=== PATIENT | female | born 1995 | race Asian ===

== ENCOUNTER 2019-02-18 19:05 | Emergency (ER) | payer OTHER ==
[~2019-02-18] VITALS: Ht 154.9 cm; Wt 83.9 kg
[2019-02-18 19:26] VITALS: BP_SYST 136
[2019-02-19] MEDS ORDERED: IBUPROFEN 800 MG TABLET PO ONE (02:30)
[2019-02-19 02:45] VITALS: BP_SYST 136
== END 2019-02-19 02:45 | disposition home or self-care (01) ==
LOC: SED 19:05
DX: S06.0X0A Concussion without loss of consciousness, initial encounter (principal); V49.40XA Driver injured in collision with unspecified motor vehicles in traffic accident, initial encounter; Y93.89 Activity, other specified; Y92.89 Other specified places as the place of occurrence of the external cause; Y99.8 Other external cause status
CPT/HCPCS: 70450-TC; 71045; 99284

== ENCOUNTER 2019-06-15 18:24 | Emergency (ER) | payer OTHER ==
[~2019-06-15] VITALS: Ht 157.5 cm; Wt 88.5 kg
[2019-06-15 18:42] VITALS: BP_SYST 133
--- NOTE | 2019-06-15 18:42 | NUR ---
PAtient complaining laceration to left 3rd finger after metal gate slammed into it. Laceration is 1 cm straight. Pain /. unknown Tetanus status. [employer] intact. Good range of motion. No other complaints/injuries per patient or as noted
--- NOTE | 2019-06-15 18:42 | NUR ---
Patient to ER bed 03 to gown for evaluation. Side rails up.
--- NOTE | 2019-06-15 18:46 | NUR ---
ER Dr. Pablo at bedside examining patient.
[2019-06-15] MEDS ORDERED: LIDOCAINE 1% 10 MG/ML, 20 ML MDV INJ ONE (19:00)
[2019-06-15] MEDS ORDERED: DIPH-TET-PERTUS Vaccine 0.5 ML VIAL (ADACEL) I.M. ONE (19:15)
[2019-06-15 19:45] VITALS: BP_SYST 123
--- NOTE | 2019-06-15 19:45 | NUR ---
Patient given written and verbal discharge instructions and verbalizes understanding. ER MD discussed with patient the results and treatment provided. Patient in stable condition. ID arm band removed. Patient educated on pain management and to follow up with PMD. Pain Scale 0/10 Opportunity for questions provided and answered.
[2019-06-15] MEDS ORDERED: BACITRACIN 1 GM OINT TP ONE (19:47)
== END 2019-06-15 19:45 | disposition home or self-care (01) ==
LOC: SED 18:24
DX: S01.81XA Laceration without foreign body of other part of head, initial encounter (principal); W23.0XXA Caught, crushed, jammed, or pinched between moving objects, initial encounter; Y93.89 Activity, other specified; Y92.89 Other specified places as the place of occurrence of the external cause; Y99.8 Other external cause status
CPT/HCPCS: 73140-TC; 90715; 99283

== ENCOUNTER 2019-12-07 09:27 | Emergency (ER) | payer OTHER ==
[~2019-12-07] VITALS: Ht 157.5 cm; Wt 105.7 kg
[2019-12-07 09:30] VITALS: BP_SYST 138
--- NOTE | 2019-12-07 09:40 | NUR ---
Patient to ER bed 3 to gown for evaluation. Side rails up. Report given to ATILIO Morel.
--- NOTE | 2019-12-07 09:52 | NUR ---
Pt alert and oriented. Able to communicate needs well. C/O headache.
--- NOTE | 2019-12-07 10:00 | NUR ---
ER Dr. Rust at bedside examining patient.
[2019-12-07] MEDS ORDERED: KETOROLAC TROMETHAMINE 60 MG/2 ML VIAL IM ONE (10:30)
[2019-12-07] MEDS ORDERED: ONDANSETRON 4 MG ODT TAB PO ONE (10:30)
[2019-12-07 10:37] VITALS: BP_SYST 138
--- NOTE | 2019-12-07 10:42 | NUR ---
Patient given written and verbal discharge instructions and verbalizes understanding. ER MD discussed with patient the results and treatment provided. Patient in stable condition. ID arm band removed. Rx of norco, motrin, cipro and zofran given. Patient educated on pain management and to follow up with PMD. Pain Scale 3/10. Opportunity for questions provided and answered. Medication side effect fact sheet provided.
== END 2019-12-07 10:42 | disposition home or self-care (01) ==
LOC: SED 09:27
DX: N39.0 Urinary tract infection, site not specified (principal); R51.9 Headache, unspecified; F17.200 Nicotine dependence, unspecified, uncomplicated
CPT/HCPCS: 81002; 81025; 96372; 99283; J1885; Q0162

== ENCOUNTER 2020-05-19 15:26 | Emergency (ER) | payer OTHER ==
[~2020-05-19] VITALS: Ht 154.9 cm; Wt 103.4 kg
[2020-05-19 15:47] VITALS: BP_SYST 128
[2020-05-19 16:35] VITALS: BP_SYST 123
== END 2020-05-19 16:35 | disposition home or self-care (01) ==
LOC: SED 15:26
DX: N93.8 Other specified abnormal uterine and vaginal bleeding (principal)
CPT/HCPCS: 99283

== ENCOUNTER 2020-06-02 08:56 | Emergency (ER) | payer OTHER ==
[~2020-06-02] VITALS: Ht 175.3 cm; Wt 95.3 kg
[2020-06-02 09:00] VITALS: BP_SYST 153
[2020-06-02 10:17] LABS: BASOPHILS # (AUTO) 0.4 K/uL (0.0-0.2); BASOPHILS % (AUTO) 3.6 % (0.0-2.0); EOSINOPHILS # (AUTO) 0.3 K/uL (0.0-0.4); EOSINOPHILS % (AUTO) 2.5 % (0.0-4.0); HEMATOCRIT 39.6 % (36-48); LYMPHOCYTES # (AUTO) 1.1 K/uL (1.0-5.5); LYMPHOCYTES % (AUTO) 10.2 % (20.5-51.5); MEAN CORPUSCULAR HEMOGLOBIN 27 pg (27-31); MEAN CORPUSCULAR HGB CONC 33 % (32-36); MEAN CORPUSCULAR VOLUME 81 fL (79.0-98.0); MONOCYTES # (AUTO) 0.5 K/uL (0.0-1.0); MONOCYTES % (AUTO) 4.8 % (1.7-9.3); NEUTROPHILS # (AUTO) 8.7 K/uL (1.8-7.7); NEUTROPHILS % (AUTO) 78.9 % (40.0-70.0); PLATELET COUNT (AUTO) 290 K/uL (130-430); RED CELL DISTRIBUTION WIDTH 13.9 % (9.0-15.0)
[2020-06-02] MEDS ORDERED: KETOROLAC TROMETHAMINE 60 MG/2 ML VIAL IM ONE (10:30)
[2020-06-02 10:33] LABS: CALCIUM 8.8 mg/dL (8.4-11.0); CREATININE 0.68 mg/dL (0.55-1.30)
[2020-06-02] MEDS ORDERED: IBUP-1969 PO (10:51)
[2020-06-02 11:03] VITALS: BP_SYST 153
== END 2020-06-02 11:04 | disposition home or self-care (01) ==
LOC: SED 08:56
DX: N93.9 Abnormal uterine and vaginal bleeding, unspecified (principal)
CPT/HCPCS: 36415; 80048; 81025; 85025; 93005; 96372; 99284; J1885

== ENCOUNTER 2020-10-11 09:45 | Emergency (ER) | payer OTHER ==
[~2020-10-11] VITALS: Ht 157.5 cm; Wt 99.8 kg
[~2020-10-11 09:45] MED LIST: IBUP-1969 PO
[2020-10-11 10:00] VITALS: BP_SYST 123
--- NOTE | 2020-10-11 10:00 | NUR ---
Patient triaged and placed in waiting room. VSS and patient appears in no acute distress at this time. Accompanied by SELF, awaiting available bed, and MD notified of need for MSE.
--- NOTE | 2020-10-11 11:30 | NUR ---
NO CHANGES, IN WAITING ROOM AWAITING ER BED.
--- NOTE | 2020-10-11 13:00 | NUR ---
Raz toribio in [facility] - 10/11/20 at 1419 by JAMES PT RESTING COMFORTABLY, NO CHANGES
--- NOTE | 2020-10-11 13:10 | NUR ---
UNABLE TO LOCATE PT IN WAITING ROOM
== END 2020-10-11 13:10 | disposition left against medical advice (07) ==
LOC: SED 09:45
DX: M79.671 Pain in right foot (principal); M79.672 Pain in left foot; Z53.21 Procedure and treatment not carried out due to patient leaving prior to being seen by health care provider

== ENCOUNTER 2021-05-22 13:50 | Emergency (ER) | payer OTHER ==
[~2021-05-22] VITALS: Ht 157.5 cm; Wt 90.7 kg
[2021-05-22 14:15] VITALS: BP_SYST 119
--- NOTE | 2021-05-22 14:15 | NUR ---
Pt triaged in waiting room.
--- NOTE | 2021-05-22 14:17 | NUR ---
Pt came in from home reporting vag bleed x 1 month, heavier in the last week. Reports hx irreg menstruation and fibroids. VSS. Pain 07/20 to lower abdomen; cramps. Awaiting MD zhong. Addendum: 05/22/21 at 1436 by [email or web address] Pt alert and oriented x 3. Ambulates with steady gait.
--- NOTE | 2021-05-22 14:20 | NUR ---
Dr Preciado to waiting room to examine patient.
[2021-05-22 15:15] LABS: BASOPHILS % (AUTO) 0.4 % (0.0-2.0); EOSINOPHILS # (AUTO) 0.1 K/uL (0.0-0.4); EOSINOPHILS % (AUTO) 0.7 % (0.0-4.0); HEMOGLOBIN 14.4 g/dL (12.0-16.0); LYMPHOCYTES # (AUTO) 1.8 K/uL (1.0-5.5); LYMPHOCYTES % (AUTO) 18.2 % (20.5-51.5); MEAN CORPUSCULAR HEMOGLOBIN 27 pg (27-31); MEAN CORPUSCULAR HGB CONC 33 % (32-36); MEAN CORPUSCULAR VOLUME 82 fL (79.0-98.0); MONOCYTES # (AUTO) 0.6 K/uL (0.0-1.0); MONOCYTES % (AUTO) 6.4 % (1.7-9.3); NEUTROPHILS # (AUTO) 7.5 K/uL (1.8-7.7); NEUTROPHILS % (AUTO) 74.3 % (40.0-70.0); PLATELET COUNT (AUTO) 289 K/uL (130-430); RED CELL DISTRIBUTION WIDTH 15.1 % (9.0-15.0); WHITE BLOOD COUNT (AUTO) 10.1 K/uL (4.8-10.8)
[2021-05-22 15:37] LABS: CALCIUM 9.6 mg/dL (8.4-11.0); CREATININE 0.81 mg/dL (0.55-1.30); POTASSIUM 3.7 mmol/L (3.5-5.1)
[2021-05-22 15:48] LABS: ALBUMIN 3.8 g/dL (3.4-4.8)
[2021-05-22 16:07] LABS: INR 0.9 (0.8-1.2); PROTHROMBIN TIME 9.7 SECS (9.5-12.5)
[2021-05-22 16:08] LABS: TOTAL BILIRUBIN 0.1 mg/dL (0.0-1.0)
[2021-05-22 16:38] VITALS: BP_SYST 119
--- NOTE | 2021-05-22 16:40 | NUR ---
Patient given written and verbal discharge instructions and verbalizes understanding. ER MD discussed with patient the results and treatment provided. Patient in stable condition. ID arm band removed. Rx of Motrin given. Patient educated on pain management and to follow up with PMD. Opportunity for questions provided and answered.
[2021-05-22 17:06] LABS: BILIRUBIN,URINE NEGATIVE (NEGATIVE); BLOOD, URINE 3+ (NEGATIVE); CLARITY/URINE TURBID (CLEAR); COLOR,URINE RED (YELLOW); GLUCOSE,URINE NEGATIVE (NEGATIVE); KETONES,URINE NEGATIVE (NEGATIVE); LEUKOCYTE ESTERASE ,URINE TRACE (NEGATIVE); NITRITE, URINE NEGATIVE (NEGATIVE); PROTEIN URINE 2+ (NEGATIVE); UROBILINOGEN,URINE 0.2 (0.2-1.0)
[2021-05-22 17:18] LABS: BACTERIA,URINE FEW /HPF (None Seen); RBC,URINE >100 /HPF (0-3); WBC,URINE 0-3 /HPF (0-3)
== END 2021-05-22 16:38 | disposition home or self-care (01) ==
LOC: SED 13:50
DX: N92.1 Excessive and frequent menstruation with irregular cycle (principal)
CPT/HCPCS: 36415; 80053; 81000; 81025; 84702; 85025; 85610-TC; 85730-TC; 86900; 86901; 87086; 99283

== ENCOUNTER 2021-12-12 12:14 | Emergency (ER) | payer OTHER ==
[~2021-12-12] VITALS: Ht 157.5 cm; Wt 90.7 kg
[2021-12-12 12:31] VITALS: BP_SYST 123
[2021-12-12 13:17] LABS: BASOPHILS % (AUTO) 0.5 % (0.0-2.0); EOSINOPHILS # (AUTO) 0.1 K/uL (0.0-0.4); EOSINOPHILS % (AUTO) 1.5 % (0.0-4.0); HEMATOCRIT 41.4 % (36-48); LYMPHOCYTES # (AUTO) 1.6 K/uL (1.0-5.5); LYMPHOCYTES % (AUTO) 16.6 % (20.5-51.5); MEAN CORPUSCULAR HEMOGLOBIN 28 pg (27-31); MEAN CORPUSCULAR HGB CONC 34 % (32-36); MEAN CORPUSCULAR VOLUME 83 fL (79.0-98.0); MONOCYTES # (AUTO) 0.7 K/uL (0.0-1.0); MONOCYTES % (AUTO) 6.9 % (1.7-9.3); NEUTROPHILS # (AUTO) 7.2 K/uL (1.8-7.7); NEUTROPHILS % (AUTO) 74.5 % (40.0-70.0); PLATELET COUNT (AUTO) 259 K/uL (130-430); RED BLOOD CELL COUNT(AUTO) 4.97 MIL/uL (4.2-6.2); RED CELL DISTRIBUTION WIDTH 13.7 % (9.0-15.0); WHITE BLOOD COUNT (AUTO) 9.6 K/uL (4.8-10.8)
[2021-12-12 13:31] LABS: CALCIUM 9.1 mg/dL (8.4-11.0); CREATININE 0.69 mg/dL (0.55-1.30); POTASSIUM 3.7 mmol/L (3.5-5.1)
[2021-12-12 13:34] LABS: BILIRUBIN,URINE NEGATIVE (NEGATIVE); BLOOD, URINE NEGATIVE (NEGATIVE); CLARITY/URINE SL CLOUDY (CLEAR); COLOR,URINE YELLOW (YELLOW); GLUCOSE,URINE NEGATIVE (NEGATIVE); KETONES,URINE NEGATIVE (NEGATIVE); LEUKOCYTE ESTERASE ,URINE NEGATIVE (NEGATIVE); NITRITE, URINE NEGATIVE (NEGATIVE); PROTEIN URINE NEGATIVE (NEGATIVE); UROBILINOGEN,URINE 0.2 (0.2-1.0)
[2021-12-12 13:36] LABS: INR 1.1 (0.8-1.2)
[2021-12-12 13:37] LABS: HCG,QUAL RESULT POSITIVE (NEGATIVE)
[2021-12-12 13:41] LABS: ALBUMIN 3.6 g/dL (3.4-4.8); TOTAL BILIRUBIN 0.2 mg/dL (0.0-1.0)
[2021-12-12 15:05] VITALS: BP_SYST 118
== END 2021-12-12 15:07 | disposition home or self-care (01) ==
LOC: SED 12:14
DX: O20.9 Hemorrhage in early pregnancy, unspecified (principal); Z3A.01 Less than 8 weeks gestation of pregnancy; Z79.899 Other long term (current) drug therapy
CPT/HCPCS: 36415; 76801; 76817; 80053; 81003; 81025; 84702; 84703; 85025; 85610-TC; 85730-TC; 86900; 86901; 99284

== ENCOUNTER 2021-12-17 14:58 | Emergency (ER) | payer OTHER ==
[~2021-12-17] VITALS: Ht 157.5 cm; Wt 90.7 kg
[2021-12-17 15:00] VITALS: BP_SYST 116
--- NOTE | 2021-12-17 15:00 | NUR ---
Patient triaged and placed in waiting room. VSS and patient appears in no acute distress at this time. Accompanied by SELF, awaiting available bed, and MD notified of need for MSE.
--- NOTE | 2021-12-17 15:01 | NUR ---
PT CAME IN FROM HOME C/O FOLLOW UP LABS FOR hCG, DENIES VAGINAL BLEEDING, LOW BACK PAIN. PT IS AMBULATORY, AAOX4, VSS
--- NOTE | 2021-12-17 17:00 | NUR ---
Patient to ER bed CH1 to gown for evaluation. Side rails up.
[2021-12-17 17:29] VITALS: BP_SYST 116
--- NOTE | 2021-12-17 17:30 | NUR ---
Patient given written and verbal discharge instructions and verbalizes understanding. ER MD discussed with patient the results and treatment provided. Patient in stable condition. ID arm band removed. NO Rx given. Patient educated on pain management and to follow up with PMD. Pain Scale 0/10. Opportunity for questions provided and answered. Medication side effect fact sheet provided.
== END 2021-12-17 17:29 | disposition home or self-care (01) ==
LOC: SED 14:58
DX: O03.9 Complete or unspecified spontaneous abortion without complication (principal); N93.9 Abnormal uterine and vaginal bleeding, unspecified; R10.9 Unspecified abdominal pain; Z79.899 Other long term (current) drug therapy
CPT/HCPCS: 36415; 84702; 99283

== ENCOUNTER 2022-05-07 19:45 | Emergency (ER) | payer OTHER ==
[~2022-05-07] VITALS: Ht 162.6 cm; Wt 108.9 kg
[2022-05-07 19:52] VITALS: BP_SYST 146
[2022-05-07] MEDS ORDERED: BACITRACIN 1 GM OINT TP ONE (20:15)
[2022-05-07] MEDS ORDERED: AMOX-423 PO (20:17)
[2022-05-07 21:04] VITALS: BP_SYST 136
== END 2022-05-07 21:04 | disposition home or self-care (01) ==
LOC: SED 19:45
DX: S81.051A Open bite, right knee, initial encounter (principal); Z79.899 Other long term (current) drug therapy; W54.0XXA Bitten by dog, initial encounter; Y93.89 Activity, other specified; Y92.89 Other specified places as the place of occurrence of the external cause; Y99.8 Other external cause status
CPT/HCPCS: 99283

== ENCOUNTER 2023-05-12 20:19 | Emergency (ER) | payer SELFPAY ==
[~2023-05-12] VITALS: Ht 157.5 cm; Wt 95.3 kg
[~2023-05-12 20:19] MED LIST changes: +AMOX-423 PO
[2023-05-12 20:42] VITALS: BP_SYST 135; PULSE 68; RESP 20; TEMP 98.1; O2SAT 98
[2023-05-12 20:58] LABS: BASOPHILS % (AUTO) 0.4 % (0.0-2.0); EOSINOPHILS # (AUTO) 0.1 K/uL (0.0-0.4); EOSINOPHILS % (AUTO) 1.2 % (0.0-4.0); HEMATOCRIT 40.2 % (36-48); HEMOGLOBIN 13.6 g/dL (12.0-16.0); LYMPHOCYTES # (AUTO) 2.1 K/uL (1.0-5.5); LYMPHOCYTES % (AUTO) 17.2 % (20.5-51.5); MEAN CORPUSCULAR HEMOGLOBIN 27 pg (27-31); MEAN CORPUSCULAR HGB CONC 34 % (32-36); MEAN CORPUSCULAR VOLUME 80 fL (79.0-98.0); MONOCYTES # (AUTO) 0.9 K/uL (0.0-1.0); MONOCYTES % (AUTO) 7.1 % (1.7-9.3); NEUTROPHILS # (AUTO) 9.2 K/uL (1.8-7.7); NEUTROPHILS % (AUTO) 74.1 % (40.0-70.0); PLATELET COUNT (AUTO) 258 K/uL (130-430); RED BLOOD CELL COUNT(AUTO) 5.02 MIL/uL (4.2-6.2); RED CELL DISTRIBUTION WIDTH 13.7 % (9.0-15.0); WHITE BLOOD COUNT (AUTO) 12.4 K/uL (4.8-10.8)
[2023-05-12 21:11] LABS: BILIRUBIN,URINE NEGATIVE (NEGATIVE); BLOOD, URINE NEGATIVE (NEGATIVE); CLARITY/URINE CLEAR (CLEAR); COLOR,URINE YELLOW (YELLOW); GLUCOSE,URINE NEGATIVE (NEGATIVE); KETONES,URINE NEGATIVE (NEGATIVE); LEUKOCYTE ESTERASE ,URINE NEGATIVE (NEGATIVE); NITRITE, URINE NEGATIVE (NEGATIVE); PROTEIN URINE NEGATIVE (NEGATIVE); UROBILINOGEN,URINE 0.2 (0.2-1.0)
[2023-05-12 21:11] LABS: CALCIUM 9.2 mg/dL (8.4-11.0); CREATININE 0.59 mg/dL (0.55-1.30); POTASSIUM 3.6 mmol/L (3.5-5.1)
[2023-05-12 21:26] LABS: SERUM HCG (QUALITATIVE) POSITIVE (NEGATIVE)
[2023-05-12] MEDS ORDERED: ONDA-8 TL (23:19)
[2023-05-12 23:22] VITALS: BP_SYST 122; PULSE 60; RESP 18; TEMP 98.3; O2SAT 99
== END 2023-05-12 23:22 | disposition home or self-care (01) ==
LOC: SED 20:19
DX: O26.891 Other specified pregnancy related conditions, first trimester (principal); Z3A.01 Less than 8 weeks gestation of pregnancy; Z79.899 Other long term (current) drug therapy
CPT/HCPCS: 36415; 76801; 80048; 81001; 81003; 81025; 82150; 83605; 83690; 84702; 84703; 85025; 99284

== ENCOUNTER 2023-07-21 17:07 | Emergency (ER) | payer MEDICAID ==
[~2023-07-21] VITALS: Ht 157.5 cm; Wt 97.5 kg
[~2023-07-21 17:07] MED LIST changes: +ONDA-8 TL
[2023-07-21 18:12] VITALS: BP_SYST 147; PULSE 76; RESP 18; TEMP 97.3; O2SAT 98
[2023-07-21 18:41] LABS: BASOPHILS % (AUTO) 0.3 % (0.0-2.0); EOSINOPHILS # (AUTO) 0.1 K/uL (0.0-0.4); EOSINOPHILS % (AUTO) 1.2 % (0.0-4.0); HEMOGLOBIN 13.3 g/dL (12.0-16.0); LYMPHOCYTES # (AUTO) 1.8 K/uL (1.0-5.5); LYMPHOCYTES % (AUTO) 14.7 % (20.5-51.5); MEAN CORPUSCULAR HEMOGLOBIN 28 pg (27-31); MEAN CORPUSCULAR HGB CONC 34 % (32-36); MEAN CORPUSCULAR VOLUME 82 fL (79.0-98.0); MONOCYTES # (AUTO) 0.8 K/uL (0.0-1.0); MONOCYTES % (AUTO) 6.5 % (1.7-9.3); NEUTROPHILS # (AUTO) 9.6 K/uL (1.8-7.7); NEUTROPHILS % (AUTO) 77.3 % (40.0-70.0); PLATELET COUNT (AUTO) 254 K/uL (130-430); RED BLOOD CELL COUNT(AUTO) 4.74 MIL/uL (4.2-6.2); RED CELL DISTRIBUTION WIDTH 14.2 % (9.0-15.0); WHITE BLOOD COUNT (AUTO) 12.4 K/uL (4.8-10.8)
[2023-07-21 19:16] LABS: ALBUMIN 2.9 g/dL (3.4-4.8); BILIRUBIN,DIRECT 0.1 mg/dL (0.0-0.3); CALCIUM 8.8 mg/dL (8.4-11.0); CREATININE 0.53 mg/dL (0.55-1.30); POTASSIUM 3.7 mmol/L (3.5-5.1); TOTAL BILIRUBIN 0.2 mg/dL (0.0-1.0); TOTAL PROTEIN, SERUM 7.6 g/dL (6.4-8.3)
[2023-07-21 19:23] LABS: BILIRUBIN,URINE NEGATIVE (NEGATIVE); BLOOD, URINE NEGATIVE (NEGATIVE); CLARITY/URINE SL CLOUDY (CLEAR); COLOR,URINE YELLOW (YELLOW); GLUCOSE,URINE NEGATIVE (NEGATIVE); KETONES,URINE NEGATIVE (NEGATIVE); LEUKOCYTE ESTERASE ,URINE NEGATIVE (NEGATIVE); NITRITE, URINE NEGATIVE (NEGATIVE); PROTEIN URINE NEGATIVE (NEGATIVE); UROBILINOGEN,URINE 0.2 (0.2-1.0)
[2023-07-21] MEDS: LABETALOL HCL 20 MG/4 ML CARTRIDGE IVP ONE (19:26)
[2023-07-21 20:12] VITALS: BP_SYST 116; PULSE 77; RESP 18; TEMP 97.8; O2SAT 99
== END 2023-07-21 20:11 | disposition home or self-care (01) ==
LOC: SED 17:07
DX: O99.352 Diseases of the nervous system complicating pregnancy, second trimester (principal); G43.909 Migraine, unspecified, not intractable, without status migrainosus; Z3A.17 17 weeks gestation of pregnancy; Z79.899 Other long term (current) drug therapy; Z79.2 Long term (current) use of antibiotics
CPT/HCPCS: 36415; 80048; 80076; 81001; 81003; 81025; 85025; 99283

== ENCOUNTER 2023-08-26 14:02 | Emergency (ER) | payer MEDICAID ==
[~2023-08-26] VITALS: Ht 157.5 cm; Wt 98.9 kg
[2023-08-26 14:20] VITALS: BP_SYST 103; PULSE 90; RESP 16; TEMP 97.8; O2SAT 98
[2023-08-26 15:22] LABS: BASOPHILS # (AUTO) 0.1 K/uL (0.0-0.2); BASOPHILS % (AUTO) 0.6 % (0.0-2.0); EOSINOPHILS # (AUTO) 0.1 K/uL (0.0-0.4); EOSINOPHILS % (AUTO) 0.6 % (0.0-4.0); HEMATOCRIT 38.7 % (36-48); HEMOGLOBIN 13.3 g/dL (12.0-16.0); LYMPHOCYTES # (AUTO) 1.4 K/uL (1.0-5.5); LYMPHOCYTES % (AUTO) 11.6 % (20.5-51.5); MEAN CORPUSCULAR HEMOGLOBIN 29 pg (27-31); MEAN CORPUSCULAR HGB CONC 34 % (32-36); MEAN CORPUSCULAR VOLUME 84 fL (79.0-98.0); MONOCYTES # (AUTO) 0.5 K/uL (0.0-1.0); MONOCYTES % (AUTO) 3.9 % (1.7-9.3); NEUTROPHILS # (AUTO) 10.2 K/uL (1.8-7.7); NEUTROPHILS % (AUTO) 83.3 % (40.0-70.0); PLATELET COUNT (AUTO) 244 K/uL (130-430); RED CELL DISTRIBUTION WIDTH 13.8 % (9.0-15.0); WHITE BLOOD COUNT (AUTO) 12.3 K/uL (4.8-10.8)
[2023-08-26 15:57] LABS: CALCIUM 9.2 mg/dL (8.4-11.0); CREATININE 0.6 mg/dL (0.55-1.30); POTASSIUM 3.6 mmol/L (3.5-5.1)
[2023-08-26 16:32] VITALS: BP_SYST 110; PULSE 86; RESP 16; TEMP 97.8; O2SAT 98
[2023-08-26 18:19] LABS: BILIRUBIN,URINE NEGATIVE (NEGATIVE); BLOOD, URINE NEGATIVE (NEGATIVE); CLARITY/URINE SL CLOUDY (CLEAR); COLOR,URINE YELLOW (YELLOW); GLUCOSE,URINE NEGATIVE (NEGATIVE); KETONES,URINE NEGATIVE (NEGATIVE); LEUKOCYTE ESTERASE ,URINE NEGATIVE (NEGATIVE); NITRITE, URINE NEGATIVE (NEGATIVE); PROTEIN URINE NEGATIVE (NEGATIVE); UROBILINOGEN,URINE 0.2 (0.2-1.0)
== END 2023-08-26 16:32 | disposition home or self-care (01) ==
LOC: SED 14:02
DX: O99.612 Diseases of the digestive system complicating pregnancy, second trimester (principal); R10.30 Lower abdominal pain, unspecified; Z3A.22 22 weeks gestation of pregnancy; Z79.899 Other long term (current) drug therapy; Z79.2 Long term (current) use of antibiotics
CPT/HCPCS: 36415; 76801; 80048; 81001; 81003; 81025; 83615; 85025; 99284